=== PATIENT | male | born 1985 | race African-American/Black ===

== ENCOUNTER 2023-08-10 21:13 | Emergency (ER) | payer MEDICAID ==
[~2023-08-10] VITALS: Ht 187.9 cm; Wt 127.0 kg
[2023-08-10 22:03] LABS: BASO # 0.1 10*3/uL (0.0-0.1); BASO % 0.6 % (0.0-1.0); EOS # 0.4 10*3/uL (0.0-0.4); EOS % 4.3 % (1.0-4.0); HEMATOCRIT 45.7 % (42.0-52.0); LYMPH # 4.1 10*3/uL (1.3-4.4); LYMPH % 43.5 % (27.0-41.0); MEAN CELL VOLUME 91.8 fl (80.0-94.0); MEAN CORPUSCULAR HGB 30.5 pg (27.0-31.0); MEAN CORPUSCULAR HGB CONC 33.3 g/dl (33.0-37.0); MEAN PLATELET VOLUME 8.8 fl (9.6-12.3); MONO # 0.8 10*3/uL (0.1-1.0); MONO % 8.1 % (3.0-9.0); NEUT % 43.2 % (47.0-73.0); PLATELET COUNT AUTOMATED 319 10*3/uL (130-400); RED BLOOD COUNT 4.98 10*6/uL (4.50-5.90); RED CELL DISTRI WIDTH 13.2 % (0-14.5); WHITE BLOOD COUNT 9.3 10*3/uL (4.8-10.8)
[2023-08-10 22:13] LABS: ACT PARTIAL THROMBO TIME 27.9 SECONDS (20.0-32.1)
[2023-08-10 22:25] LABS: ALKALINE PHOSPHATASE 68 U/L (46-116); BUN 7 mg/dl (9-23); CHLORIDE 107 mmol/L (98-107); CPK 339 U/L (34-171); LIPASE 37 U/L (12-53); POTASSIUM 4.5 mmol/L (3.4-5.1); SGPT/ALT 46 U/L (5-49)
[2023-08-10 22:32] LABS: ETHYL ALCOHOL < 3.0 mg/dl (<3)
[2023-08-11 00:28] LABS: BILIRUBIN Negative (Negative); BLOOD Negative (Negative); CLARITY Clear (Clear); COLOR Yellow (Yellow); GLUCOSE Negative (Negative); KETONE Trace (Negative); LEUKO ESTERASE Negative (Negative); NITRITE Negative (Negative); SPECIFIC GRAVITY 1.015 (1.001-1.030)
[2023-08-11 00:44] LABS: URINE AMPHETAMINES Negative (1000ng/ml); URINE BARBITURATES Negative (200ng/ml); URINE BENZODIAZEPINES Negative (200ng/ml); URINE CANNABINOIDS (THC) Negative (50ng/ml); URINE COCAINE Negative (300ng/ml); URINE METHADONE Negative (300ng/ml); URINE OPIATES Negative (300ng/ml); URINE PHENCYCLIDINE Negative (25ng/ml)
[2023-08-11 00:54] LABS: EPITHELIAL CELLS 0-2; WBC 0-2 wbc/hpf (0-5)
== END 2023-08-11 08:32 | disposition home or self-care (01) ==
LOC: ED 21:13
PROVIDERS: Internal Medicine
DX: F39 Unspecified mood [affective] disorder (principal); R10.2 Pelvic and perineal pain; Z79.899 Other long term (current) drug therapy